=== PATIENT | female | born 1985 | race Caucasian/White ===

== ENCOUNTER 2018-01-28 15:15 | Inpatient (IN) | payer OTHER ==
[~2018-01-28] VITALS: Ht 160 cm; Wt 172.0 kg
[2018-02-07] MEDS ORDERED: PRENATABS RX T1 EACH PO (06:26)
== END 2018-02-09 12:27 | DRG 775 ==
LOC: LDR 02-07 06:13 → OB/GYN 02-07 12:53 → LDR 02-07 15:15 → OB/GYN 02-09 12:27 → LDR 02-09 15:15
PROC: 10E0XZZ Delivery of Products of Conception, External Approach (ICD-10-PCS; principal; 2018-02-07)
PROC: 0KQM0ZZ Repair Perineum Muscle, Open Approach (ICD-10-PCS; 2018-02-07)
PROC: 10907ZC Drainage of Amniotic Fluid, Therapeutic from Products of Conception, Via Natural or Artificial Opening (ICD-10-PCS; 2018-02-07)
PROC: 3E0P7VZ Introduction of Hormone into Female Reproductive, Via Natural or Artificial Opening (ICD-10-PCS; 2018-02-07)
PROC: 3E033VJ Introduction of Other Hormone into Peripheral Vein, Percutaneous Approach (ICD-10-PCS; 2018-02-07)
PROC: 4A033R1 Measurement of Arterial Saturation, Peripheral, Percutaneous Approach (ICD-10-PCS; 2018-02-07)
PROC: 4A1HXCZ Monitoring of Products of Conception, Cardiac Rate, External Approach (ICD-10-PCS; 2018-02-07)
DX: O70.1 Second degree perineal laceration during delivery (principal); Z37.0 Single live birth; O99.824 Streptococcus B carrier state complicating childbirth; Z3A.40 40 weeks gestation of pregnancy

== ENCOUNTER 2025-08-05 10:54 | Inpatient (IN) | payer OTHER ==
[~2025-08-05] VITALS: Ht 160 cm; Wt 81.2 kg
[~2025-08-05 10:54] MED LIST: PRENATABS RX T1 EACH PO
[2025-08-10 19:02] VITALS: BP 156/94
[2025-08-10] MEDS ORDERED: RINGERS SOLUTION,LACTATED 1,000 ML IV SCH (19:30)
[2025-08-10] MEDS ORDERED: MORPHINE SULFATE 4 MG/ML CARTRIDGE IV PRN (19:30)
[2025-08-10 19:38] LABS: BASO % 0.3 % (0.1-1.2); EOS # 0.04 (0.04-0.54); EOS % 0.7 % (0.7-7.0); LYMPH # 2.39 (1.18-3.74); LYMPH % 40.6 % (19.3-53.1); MONO # 0.51 (0.24-0.82); MONO % 8.7 % (4.7-12.5); NEUT # 2.91 (1.56-6.13); NEUT % 49.4 % (34.0-71.1); RED CELL DISTRIBUTION WIDTH 13.2 % (11.6-14.4)
[2025-08-10 20:19] LABS: INR 0.95
[2025-08-10 20:29] LABS: ALT/SGPT 19.0 U/L (12-78); AST/SGOT 14.0 U/L (15-37); BILIRUBIN TOTAL 0.37 mg/dL (0.3-1.2); BUN CREA RATIO 17.0 (7.0-25.0); CREATININE SERUM 0.76 mg/dL (0.55-1.02); GFR 84.29; GLOBULINA 3.6 G/DL (2.4-3.5); GLUCOSE FASTING 102.0 mg/dL (65-100); OSMOLALITY SERUM 282.0 MOSM/KG (275-295)
[2025-08-10] MEDS ORDERED: OXYTOCIN 1,000 ML IV SCH (22:30)
[2025-08-10] MEDS ORDERED: CHLORHEXIDINE GLUCONATE 120 ML BOTTLE TOP SCH (22:30)
[2025-08-10 23:12] VITALS: BP 142/73
[2025-08-11 00:20] VITALS: BP 160/95
[2025-08-11 02:39] VITALS: BP 149/81
[2025-08-11 05:54] VITALS: BP 125/83
[2025-08-11 08:00] VITALS: BP 140/85
[2025-08-11 08:13] LABS: URINE APPEARANCE Clear; URINE BILIRRUBIN Negative (NEGATIVE); URINE BLOOD Large; URINE COLOR Red; URINE GLUCOSE Negative (NEGATIVE); URINE KETONE Trace (NEGATIVE); URINE LEUKOCYTE Trace; URINE NITRATE Negative; URINE PROTEIN Trace (NEGATIVE); URINE UROBILINOGEN 0.2 E.U./dl
[2025-08-11 08:14] LABS: URINE BACTERIA 109.1 uL (0.0-1933); URINE EPITHELIAL CELLS 3.2 uL (0.0-38.8); URINE RBC 7269.4 uL (0.0-20.8); URINE WBC 23.1 uL (0.0-23.2)
[2025-08-11 08:23] LABS: BASO % 0.3 % (0.1-1.2); EOS # 0.01 (0.04-0.54); EOS % 0.1 % (0.7-7.0); LYMPH # 2.08 (1.18-3.74); LYMPH % 19.5 % (19.3-53.1); MEAN PLATELET VOLUME 14.90 fl (9.4-12.4); MONO # 0.76 (0.24-0.82); MONO % 7.1 % (4.7-12.5); NEUT # 7.77 (1.56-6.13); NEUT % 72.7 % (34.0-71.1); RED CELL DISTRIBUTION WIDTH 13.0 % (11.6-14.4)
[2025-08-11 08:50] LABS: ALT/SGPT 16.0 U/L (12-78); AST/SGOT 22.0 U/L (15-37); BILIRUBIN TOTAL 0.37 mg/dL (0.3-1.2); BUN CREA RATIO 20.0 (7.0-25.0); CREATININE SERUM 0.46 mg/dL (0.55-1.02); GFR 150.45; GLOBULINA 3.3 G/DL (2.4-3.5); GLUCOSE FASTING 76.0 mg/dL (65-100); OSMOLALITY SERUM 281.0 MOSM/KG (275-295)
[2025-08-11 09:58] LABS: URINE CAST 0.14 uL (0.0-1.40)
[2025-08-11 16:26] VITALS: BP 140/80
[2025-08-11 21:11] VITALS: BP 130/80
[2025-08-12 00:10] VITALS: BP 144/83
[2025-08-12 08:44] VITALS: BP 116/77
== END 2025-08-12 13:33 | disposition home or self-care (01) | DRG 807 ==
LOC: OB/GYN 08-10 19:12 → LDR 08-10 19:12 → OB/GYN 08-10 22:29
PROVIDERS: Obstetrics & Gynecology; ADMIT Obstetrics & Gynecology Maternal & Fetal Medicine; ATTEND Obstetrics & Gynecology Maternal & Fetal Medicine
PROC: 10E0XZZ Delivery of Products of Conception, External Approach (ICD-10-PCS; principal; 2025-08-10)
PROC: 0KQM0ZZ Repair Perineum Muscle, Open Approach (ICD-10-PCS; 2025-08-10)
PROC: 4A1HXCZ Monitoring of Products of Conception, Cardiac Rate, External Approach (ICD-10-PCS; 2025-08-10)
DX: O70.1 Second degree perineal laceration during delivery (principal); Z37.0 Single live birth; Z3A.38 38 weeks gestation of pregnancy